=== PATIENT | female | born 1985 | race Caucasian/White ===

== ENCOUNTER 2018-02-13 20:40 | Emergency (ER) | payer MEDICAID ==
[2018-02-13] MEDS: IBUPROFEN 800 MG TAB PO (23:22)
== END 2018-02-13 23:30 | disposition home or self-care (01) ==
LOC: E/R 23:30
DX: H61.21 Impacted cerumen, right ear (principal)
CPT/HCPCS: 99282; Z7502

== ENCOUNTER 2018-06-11 12:15 | Emergency (ER) | payer MEDICAID ==
[2018-06-11 13:43] LABS: ADD MAN DIFF? NO
[2018-06-11 13:46] LABS: WHITE BLOOD COUNT 7.6 10^3/ul (4.8-10.8)
[2018-06-11 13:46] LABS: BASOPHILS % 0.3 % (0.0-2.0); EOSINOPHILS % 0.3 % (0.0-7.0); HEMATOCRIT 38.3 % (37.0-47.0); LYMPHOCYTES % 25.8 % (15.0-51.0); MEAN CORPUSCULAR HEMOGLOBIN 29.5 pg (29.0-33.0); MEAN CORPUSCULAR HGB CONC 33.9 g/dl (32.0-37.0); MEAN PLATELET VOLUME 11.1 fl (7.4-10.4); MONOCYTE # 0.4 10^3/ul (0.3-0.9); MONOCYTES % 5.7 % (0.0-11.0); NEUTROPHIL # 5.1 10^3/ul (1.6-7.5); NEUTROPHILS % 67.6 % (39.0-77.0); PLATELET COUNT 247 10^3/UL (140-415); RED CELL DISTRIBUTION WIDTH 12.5 % (11.5-14.5)
[2018-06-11 13:55] LABS: ADD UMIC YES; UR ASCORBIC ACID NEGATIVE (NEGATIVE); UR BILIRUBIN (Dip) NEGATIVE (NEGATIVE); UR BLOOD (Dip) 1+ mg/dL (NEGATIVE); UR CLARITY CLEAR (CLEAR); UR COLOR COLORLESS (YELLOW); UR GLUCOSE (Dip) NEGATIVE (NEGATIVE); UR KETONES (Dip) NEGATIVE (NEGATIVE); UR LEUKOCYTE ESTERASE (Dip) NEGATIVE Leu/ul (NEGATIVE); UR NITRITE (Dip) NEGATIVE (NEGATIVE); UR RBC 0 /HPF (0-5); UR SPECIFIC GRAVITY (Dip) 1.002 (1.003-1.030); UR TOTAL PROTEIN (Dip) NEGATIVE (NEGATIVE); UR UROBILINOGEN (Dip) NEGATIVE (NEGATIVE); UR WBC 0 /HPF (0-5)
[2018-06-11 14:06] LABS: ALANINE AMINOTRANSFERASE 18 IU/L (13-69); ALBUMIN 4.8 g/dl (3.3-4.9); ALBUMIN/GLOBULIN RATIO 1.17; ALKALINE PHOSPHATASE 73 IU/L (42-121); ANION GAP 18 (5-13); ASPARTATE AMINO TRANSFERASE 25 IU/L (15-46); BILIRUBIN,INDIRECT 0.3 mg/dl (0-1.1); BILIRUBIN,TOTAL 0.3 mg/dl (0.2-1.3); BLOOD UREA NITROGEN 7 mg/dl (7-20); CALCIUM 9.5 mg/dl (8.4-10.2); CARBON DIOXIDE 22 mmol/L (21-31); CHLORIDE 103 mmol/L (97-110); Estimated GFR > 60 mL/min (>60); GLUCOSE 101 mg/dl (70-220); LIPASE 121 U/L (23-300); POTASSIUM 3.6 mmol/L (3.5-5.1); SODIUM 143 mmol/L (135-144); TOTAL PROTEIN 8.9 g/dl (6.1-8.1)
[2018-06-11] MEDS: IOHEXOL 300MG/ML 150 ML BTL (14:49)
[2018-06-11] MEDS: SOD CHLORIDE 0.9% 100 ML (14:49)
== END 2018-06-11 15:32 | disposition home or self-care (01) ==
LOC: FTE 12:15
DX: K62.89 Other specified diseases of anus and rectum (principal)
CPT/HCPCS: 36415; 74177; 80053; 81001; 83690; 84703; 85025; 99284-25

== ENCOUNTER 2018-07-25 21:57 | Emergency (ER) | payer SELFPAY, MEDICAID | END 2018-07-26 01:58 | disposition left against medical advice (07) | LOC: FTE 21:57 | DX: Z53.21 Procedure and treatment not carried out due to patient leaving prior to being seen by health care provider (principal) ==

== ENCOUNTER 2018-10-13 16:38 | Emergency (ER) | payer MEDICAID | END 2018-10-13 17:33 | disposition home or self-care (01) | LOC: FTE 17:33 | DX: H61.23 Impacted cerumen, bilateral (principal) | CPT/HCPCS: 99282; Z7502 ==

== ENCOUNTER 2018-11-28 17:55 | Emergency (ER) | payer MEDICAID ==
[2018-11-28 18:38] LABS: URINE PH (Dip) POC 5.5 (5.0-8.5)
[2018-11-28 18:38] LABS: URINE BLOOD (Dip) POC Trace-lysed (NEGATIVE); URINE GLUCOSE (Dip) POC Negative (NEGATIVE); URINE KETONES (Dip) POC Negative (NEGATIVE); URINE LEUKOCYTE EST (Dip) POC Negative (NEGATIVE); URINE NITRITE (Dip) POC Negative (NEGATIVE); URINE TOTAL PROTEIN POC Negative (NEGATIVE)
== END 2018-11-28 19:09 | disposition home or self-care (01) ==
LOC: FTE 19:09
DX: M54.9 Dorsalgia, unspecified (principal)
CPT/HCPCS: 81003; 81025; 99282